=== PATIENT | female | born 1995 ===

== ENCOUNTER 2021-03-20 09:02 | Inpatient (IN) | payer OTHER ==
[~2021-03-20] VITALS: Ht 157.5 cm; Wt 71.2 kg
[2021-03-20] MEDS ORDERED: PRENATAL TABLE1 EAC1 PO (09:18)
== END 2021-03-22 14:49 | disposition home or self-care (01) | DRG 807 ==
LOC: LDR 09:02 → OB/GYN 03-21 00:13
PROVIDERS: ADMIT Obstetrics & Gynecology; ATTEND Obstetrics & Gynecology
PROC: 10E0XZZ Delivery of Products of Conception, External Approach (ICD-10-PCS; principal; 2021-03-20)
PROC: 4A1HXFZ Monitoring of Products of Conception, Cardiac Rhythm, External Approach (ICD-10-PCS; 2021-03-20)
DX: O99.824 Streptococcus B carrier state complicating childbirth (principal); Z37.0 Single live birth; Z3A.39 39 weeks gestation of pregnancy